=== PATIENT | male | born 1980 | race Caucasian/White ===

== ENCOUNTER → 2019-01-25 | Emergency (ER) | payer OTHER ==
[~2019-01-25] VITALS: Ht 167.6 cm; Wt 81.6 kg
[~2019-01-25] MED LIST: FOLIC ACID0.4 MG; HYDROXYUREA500 MG PO; RELAFEN500 MG
== END | disposition home or self-care (01) ==
LOC: ER 09:20
DX: D57.80 Other sickle-cell disorders without crisis (principal)

== ENCOUNTER 2020-10-27 17:54 | Emergency (ER) | payer OTHER ==
[~2020-10-27] VITALS: Ht 170.2 cm; Wt 82.6 kg
== END 2020-10-27 19:28 | disposition home or self-care (01) ==
LOC: ER 17:54
DX: S60.512A Abrasion of left hand, initial encounter (principal); W45.8XXA Other foreign body or object entering through skin, initial encounter; Y93.89 Activity, other specified; Y92.098 Other place in other non-institutional residence as the place of occurrence of the external cause; Y99.8 Other external cause status

== ENCOUNTER 2021-12-31 06:40 | Emergency (ER) | payer OTHER ==
[~2021-12-31] VITALS: Ht 167.6 cm; Wt 81.6 kg
[2021-12-31] MEDS ORDERED: PERCOCET 5-3251 EACH PO (13:12)
== END 2021-12-31 14:17 | disposition home or self-care (01) ==
LOC: ER 06:40
DX: D57.09 Hb-SS disease with crisis with other specified complication (principal)

== ENCOUNTER 2022-07-28 09:30 | Inpatient (IN) | payer OTHER ==
[~2022-07-28] VITALS: Ht 175.3 cm; Wt 81.6 kg
[~2022-07-28 09:30] MED LIST changes: +PERCOCET 5-3251 EACH PO
[2022-07-28] MEDS ORDERED: DIALYVITE WITH1 EACH PO (09:49)
[2022-07-31] MEDS ORDERED: HYDREA500 M1 PO (13:19)
== END 2022-07-31 15:20 | disposition home or self-care (01) | DRG 812 ==
LOC: ER 09:30 → SEC-K 18:18 → MEDJ 18:18
PROVIDERS: ADMIT Internal Medicine Hematology & Oncology; ATTEND Internal Medicine Hematology & Oncology
DX: D57.819 Other sickle-cell disorders with crisis, unspecified (principal); E86.0 Dehydration; G51.0 Bell's palsy; Z20.822 Contact with and (suspected) exposure to COVID-19

== ENCOUNTER 2023-03-03 14:16 | Emergency (ER) | payer OTHER ==
[~2023-03-03] VITALS: Ht 180.3 cm; Wt 84.4 kg
[~2023-03-03 14:16] MED LIST changes: +DIALYVITE WITH1 EACH PO; +HYDREA500 M1 PO
== END 2023-03-03 19:33 | disposition home or self-care (01) ==
LOC: ER 14:16
DX: D57.819 Other sickle-cell disorders with crisis, unspecified (principal); J10.1 Influenza due to other identified influenza virus with other respiratory manifestations; E86.0 Dehydration; R53.81 Other malaise; R05.9 Cough, unspecified; Z20.822 Contact with and (suspected) exposure to COVID-19

== ENCOUNTER 2023-05-04 13:43 | Outpatient (CLI) | payer OTHER | END 2023-05-04 13:44 | disposition home or self-care (01) | LOC: RAD 13:43 | PROVIDERS: ATTEND Internal Medicine Hematology & Oncology | DX: J15.8 Pneumonia due to other specified bacteria (principal); D57.20 Sickle-cell/Hb-C disease without crisis ==